=== PATIENT | male | born 1965 | race African-American/Black ===

== ENCOUNTER 2020-01-04 18:20 | Emergency (ER) | payer MEDICAID, OTHER ==
[~2020-01-04] VITALS: Ht 177.8 cm; Wt 73.0 kg
[~2020-01-04 18:20] MED LIST: 0.92DISP2 IVF; ACET650S21 PO; ALPR0.254 PO; APIX5TAB PO; ASPI-515 PO; ASPI81TA45 PO; ATOR-2 PO; BISA10SU4 PR; DOCU50LI26 PO; ENOX80SY4 SQ; FAMO20TA7 PO; IPRA3AMP30 INLINE; LACO50TA PO; LACT20SO13 NG; LORA2VIA6 IVPush; ONDA4VIA60 IVPush; SENN-193 NG; SENN176S NG; Scopolamine Transderm TD; ZOLP-413 PO; [UNRECOGNIZED DRUG - CODE] TP
--- NOTE | 2020-01-04 18:40 | NUR ---
BIB [facility] FROM HOME FOR DIFFICULTY BREATHING, TRACH IN PLACE. NOTED COPIOUS AMOUNTS OF SECRETIONS IN TUBING, TAPED HUMIDIFIER, O2 APPEARING TO NOT CONNECT APPROPRIATELY. RT PAGED. PT CONNECTED TO ALL MONITORING, VSS AT THIS TIME. CALL LIGHT WITHIN REACH. AWAITING MD ORDERS
--- NOTE | 2020-01-04 18:51 | NUR ---
MD TO BEDSIDE FOR ASSESSMENT
--- NOTE | 2020-01-04 19:09 | NUR ---
RT AT BEDSIDE SETTING UP NEW SYSTEM.
--- NOTE | 2020-01-04 19:10 | NUR ---
PER MD REQUEST, CONTACTED HOME HEALTH NURSE, VOICEMAIL LEFT TO CALL BACK.
--- NOTE | 2020-01-04 19:26 | NUR ---
CALL BACK RECEIVED FROM IGLESIA WEBB RN WITH HOSPICE ([phone]) STS HUMIDIFIED O2 HAS BEEN ORDERED AND WILL CALL HER BOSS TO SEE IF THE ORDER CAN BE EXPEDITED FOR DELIVERY TONIGHT. AWAITING CALL BACK WITH CONFIRMATION
--- NOTE | 2020-01-04 20:26 | NUR ---
CALL BACK RECEIVED FROM [place] ATTORNEY GENERAL FOR [facility], GIVEN CONTACT INFO FOR TORI CASTILLO AND CSR TECHNICIAN OF COMPANY ([phone]). EXPLAINED HUMIDIFIED O2 NEEDED AT HOME. TORI WOODS WILL BE ABLE TO MEET PT AT HOME TO SET UP SYSTEM. UPDATED, PT TO BE DCd. TRANSPORT IN PROCESS WITH [facility] TO GO HOME.
[2020-01-04 20:28] VITALS: BP 125/76
--- NOTE | 2020-01-04 20:29 | NUR ---
FAMILY AND PT UPDATED ON POC, EVERYONE AGREES.
--- NOTE | 2020-01-04 20:57 | NUR ---
[facility] HERE FOR [employer] IN[employer]CTOR. TORI CASTILLO CALLED TO MEET PT AT HOME.
== END 2020-01-04 21:00 | disposition home or self-care (01) ==
LOC: ED 20:40
DX: R06.00 Dyspnea, unspecified (principal); Z86.73 Personal history of transient ischemic attack (TIA), and cerebral infarction without residual deficits; Z85.118 Personal history of other malignant neoplasm of bronchus and lung
CPT/HCPCS: 99283